=== PATIENT | male | born 1995 | race Caucasian/White ===

== ENCOUNTER 2024-06-29 07:59 | Inpatient (IN) | payer OTHER ==
[~2024-06-29] VITALS: Ht 185.4 cm; Wt 65.4 kg
[2024-06-29] MEDS: PIPERACILLIN/TAZO 3.375G/50ML 50 ML IV ONE (08:56)
[2024-06-29] MEDS: SODIUM CHLORIDE 0.9% 1000ML BAG (SEPSIS BOLUS) IV ONE (08:56)
[2024-06-29 09:02] LABS: HEMATOCRIT. 46.7 % (42.0-52.0); HEMOGLOBIN. 15.4 g/dL (14.0-18.0); MEAN CORPUSCULAR HEMOGLOBIN 30.1 pg (28.0-32.0); MEAN CORPUSCULAR VOLUME 91.1 fL (80.0-94.0); MEAN PLATELET VOLUME 7.3 fl (7.4-10.4); PLATELET 300 x1000/uL (130-400); RED BLOOD CELL COUNT 5.13 mill/uL (4.7-6.1); RED CELL DISTRIBUTION WIDTH 14.1 % (11.6-14.6); WHITE BLOOD COUNT 16.4 x1000/uL (4.5-11.0)
[2024-06-29 09:05] LABS: DIFFERENTIAL COMMENT 1
[2024-06-29] MEDS: VANCOMYCIN 1G PREMIX 200 ML IV ONE (09:07)
[2024-06-29 09:10] LABS: CHLORIDE 93 mEq/L (98-107); POTASSIUM 4.3 mEq/L (3.5-5.1); SODIUM 127 mEq/L (136-145)
[2024-06-29 09:11] LABS: CALCIUM 9.6 mg/dL (8.7-10.4); CARBON DIOXIDE 28 mEq/L (21-32); INR 1.1; PROTHROMBIN TIME 11.7 sec (9.6-11.0)
[2024-06-29 09:16] LABS: GLUCOSE 118 mg/dL (70-105); UREA NITROGEN BLOOD 8 mg/dL (9-23)
[2024-06-29 09:17] LABS: TROPONIN I HIGH SENSITIVITY 13 ng/L (3.0-53)
[2024-06-29] MEDS: KETOROLAC 30MG/ML VIAL IV ONE (10:49)
[2024-06-29 11:17] LABS: PLATELET ESTIMATE NORMAL
[2024-06-29 11:27] LABS: CLARITY URINE CLEAR (CLEAR); COLOR URINE YELLOW (YELLOW); GLUCOSE URINE NEGATIVE (NEGATIVE); KETONES URINE NEGATIVE (NEGATIVE); LEUKOCYTE ESTERASE URINE NEGATIVE (NEGATIVE); NITRITE URINE NEGATIVE (NEGATIVE); OCCULT BLOOD URINE NEGATIVE (NEGATIVE); PROTEIN URINE 1+ (NEGATIVE); SPECIFIC GRAVITY URINE 1.012 (1.005-1.030)
[2024-06-29 11:55] LABS: SQUAMOUS EPITHELIAL CELL URINE NONE SEEN /lpf (RARE/1+)
[2024-06-29 11:56] LABS: BACTERIA URINE TRACE; RBC URINE NONE SEEN /hpf (0-2); WBC URINE 0-2 /hpf (0-2)
[2024-06-29] MEDS ORDERED: DOCUSATE SODIUM 100MG CAPSULE PO PRN (17:00)
[2024-06-29] MEDS ORDERED: ONDANSETRON HCL 4MG/2ML INJ IV PRN (17:00)
[2024-06-29] MEDS ORDERED: IPRATROPIUM/ALBUTEROL 0.5-3(2.5)MG/3ML NEB HHN PRN (17:00)
[2024-06-29] MEDS ORDERED: ACETAMINOPHEN 325MG TABLET PO PRN (17:00)
[2024-06-29] MEDS ORDERED: CLONIDINE 0.1MG TABLET PO PRN (17:00)
[2024-06-29] MEDS: METHYLPREDNISOLONE SOD SUCC 40MG/ML (ACT-O-VIAL) IV NR (17:24)
[2024-06-29] MEDS: SODIUM CHLORIDE 0.9% 1,000 ML IV SCH (17:24)
[2024-06-29 17:54] LABS: BG BASE EXCESS 1.4 mmol/L (-2.0-3.0); BG CARBOXYHEMOGLOBIN 0.8 % (0.5-1.5); BG DEOXYHEMOGLOBIN 7.9 % (0.0-5.0); BG FRACTION INSPIRED OXYGEN 21; BG HCO3 ACT 25.2 mmol/L (21.0-28.0); BG METHEMOGLOBIN 0.3 % (0.5-1.5); BG PCO2 37.5 mmHg (35.0-48.0); BG PH 7.446 (7.350-7.450); BG PO2 60.1 mmHg (83.0-108.0); BG SAMPLE SITE RIGHT BRACHIAL; BG VENT MODE ROOM AIR
[2024-06-29 19:56] VITALS: BP 133/76; PULSE 119; RESP 17; TEMP 37.66968; TEMP 37.6968; O2SAT 100
[2024-06-29] MEDS: PIPERACILLIN/TAZO 3.375G/50ML 50 ML IV SCH (21:18)
[2024-06-29] MEDS: DILTIAZEM HCL 30MG TABLET PO SCH (21:18)
[2024-06-29] MEDS: ACETAMINOPHEN 325MG TABLET PO PRN (21:19)
[2024-06-29] MEDS: TETANUS, DIPHTHERIA, PERTUSSIS VAC/PF 0.5ML (>10YR OLD) IM ONE (23:00)
[2024-06-29] MEDS: VANCOMYCIN 1G PREMIX 200 ML IV NR (23:02)
[2024-06-30] VITALS: BP 111/68; PULSE 68; RESP 19; TEMP 36.78072; O2SAT 97
[2024-06-30 00:44] LABS: CREATINE KINASE MB FRACTION 1.5 ng/mL (0.5-3.6)
[2024-06-30 02:04] LABS: *AMPHETAMINES SCREEN URINE PRESUMPTIVE POSITIVE (NEGATIVE); *BARBITURATES SCREEN URINE NEGATIVE (NEGATIVE); *BENZODIAZEPINES SCREEN URINE NEGATIVE (NEGATIVE); *COCAINE SCREEN URINE NEGATIVE (NEGATIVE); METHADONE URINE SCREEN NEGATIVE (NEGATIVE); OPIATES URINE SCREEN NEGATIVE (NEGATIVE)
[2024-06-30 02:05] LABS: CANNABINOID URINE SCREEN PRESUMPTIVE POSITIVE (NEGATIVE); ECSTASY MDMA SCREEN URINE NEGATIVE (NEGATIVE); PHENCYCLIDINE URINE SCREEN NEGATIVE (NEGATIVE)
[2024-06-30 04:00] VITALS: BP 112/62; PULSE 65; RESP 15; TEMP 37.00296; O2SAT 97
[2024-06-30] MEDS: VANCOMYCIN 750MG PREMIX 150 ML IV SCH (05:04)
[2024-06-30 07:41] LABS: CREATINE KINASE MB FRACTION 1.2 ng/mL (0.5-3.6)
[2024-06-30 08:00] VITALS: BP 117/72; PULSE 72; RESP 14; TEMP 36.89184; O2SAT 98
[2024-06-30] MEDS ORDERED: IPRATROPIUM/ALBUTEROL 0.5-3(2.5)MG/3ML NEB HHN PRN (11:15)
[2024-06-30 12:00] VITALS: BP 115/78; PULSE 70; RESP 22; TEMP 36.83628; O2SAT 98
[2024-06-30 13:17] LABS: HEMATOCRIT. 42.3 % (42.0-52.0); HEMOGLOBIN. 13.9 g/dL (14.0-18.0); MEAN CORPUSCULAR HEMOGLOBIN 30.4 pg (28.0-32.0); MEAN CORPUSCULAR HGB CONC 32.9 g/dL (31.0-37.0); MEAN CORPUSCULAR VOLUME 92.3 fL (80.0-94.0); MEAN PLATELET VOLUME 7.7 fl (7.4-10.4); PLATELET 298 x1000/uL (130-400); RED BLOOD CELL COUNT 4.58 mill/uL (4.7-6.1); RED CELL DISTRIBUTION WIDTH 14.5 % (11.6-14.6); WHITE BLOOD COUNT 16.2 x1000/uL (4.5-11.0)
[2024-06-30 13:18] LABS: DIFFERENTIAL COMMENT 1
[2024-06-30 13:27] LABS: CHLORIDE 105 mEq/L (98-107); POTASSIUM 4.3 mEq/L (3.5-5.1); SODIUM 138 mEq/L (136-145)
[2024-06-30 13:28] LABS: CARBON DIOXIDE 27 mEq/L (21-32)
[2024-06-30 13:33] LABS: CREATININE 0.6 mg/dL (0.6-1.3); GLUCOSE 116 mg/dL (70-105)
[2024-06-30 13:34] LABS: LDL CHOLESTEROL 70 mg/dL (5-100); TRIGLYCERIDE 85 mg/dL (0-150); UREA NITROGEN BLOOD 12 mg/dL (9-23)
[2024-06-30 13:35] LABS: ALANINE AMINOTRANSFERASE 39 IU/L (10-49); ALBUMIN 3.8 g/dL (3.2-4.8); ASPARTATE AMINOTRANSFERASE 34 IU/L (<34); BILIRUBIN DIRECT 0.1 mg/dL (<=3.0); CHOLESTEROL 111 mg/dL (<200); HDL CHOLESTEROL 29 mg/dL (>55); PHOSPHORUS 2.6 mg/dL (2.5-4.9)
[2024-06-30 13:36] LABS: BILIRUBIN TOTAL 0.4 mg/dL (0.1-1.0); PROTEIN TOTAL 6.7 g/dL (6.0-8.3)
[2024-06-30 13:38] LABS: PROTHROMBIN TIME 11.1 sec (9.6-11.0); T4 FREE 0.88 ng/dL (0.89-1.76); THYROID STIMULATING HORMONE 1.67 uIU/mL (0.55-4.78)
[2024-06-30] MEDS: TETANUS, DIPHTHERIA, PERTUSSIS VAC/PF 0.5ML (>10YR OLD) IM ONE (14:01)
[2024-06-30 15:49] LABS: PLATELET ESTIMATE NORMAL
[2024-06-30 16:00] VITALS: BP 114/75; PULSE 78; RESP 14; TEMP 36.89184; O2SAT 98
[2024-06-30 16:17] LABS: CREATINE KINASE MB FRACTION 1.1 ng/mL (0.5-3.6)
[2024-06-30 20:00] VITALS: BP 122/77; PULSE 99; RESP 25; TEMP 37.00296; O2SAT 98
[2024-06-30] MEDS: MUPIROCIN 2% OINT 22GM TOP SCH (21:27)
[2024-06-30] MEDS: HYDROCODONE/ACETAMINOPHEN 5/325MG TABLET PO PRN (21:54)
[2024-07-01] VITALS: BP 116/75; PULSE 68; RESP 12; TEMP 37.05852; O2SAT 98
[2024-07-01 01:30] LABS: CREATINE KINASE MB FRACTION 0.9 ng/mL (0.5-3.6)
[2024-07-01 04:13] VITALS: BP 112/67; PULSE 72; RESP 13; TEMP 36.9474; O2SAT 96
[2024-07-01 04:33] LABS: BASOPHILS % 0.1 % (0.0-2.0); EOSINOPHILS % 0.3 % (0.0-5.0); HEMATOCRIT. 39.3 % (42.0-52.0); LYMPHOCYTES % 11.6 % (20.0-50.0); MEAN CORPUSCULAR HEMOGLOBIN 30.2 pg (28.0-32.0); MEAN CORPUSCULAR VOLUME 91.7 fL (80.0-94.0); MEAN PLATELET VOLUME 7.7 fl (7.4-10.4); MONOCYTES % 8.9 % (2.0-8.0); NEUTROPHILS % 79.1 % (40.0-76.0); PLATELET 294 x1000/uL (130-400); RED BLOOD CELL COUNT 4.29 mill/uL (4.7-6.1); RED CELL DISTRIBUTION WIDTH 14.7 % (11.6-14.6); WHITE BLOOD COUNT 12.4 x1000/uL (4.5-11.0)
[2024-07-01 04:43] LABS: CARBON DIOXIDE 29 mEq/L (21-32); CHLORIDE 106 mEq/L (98-107); POTASSIUM 3.9 mEq/L (3.5-5.1); SODIUM 140 mEq/L (136-145)
[2024-07-01 04:49] LABS: CREATININE 0.7 mg/dL (0.6-1.3); GLUCOSE 113 mg/dL (70-105); UREA NITROGEN BLOOD 15 mg/dL (9-23)
[2024-07-01 04:51] LABS: PHOSPHORUS 2.4 mg/dL (2.5-4.9)
[2024-07-01] MEDS ORDERED: IOHEXOL-350 100 ML BOTTLE ONE (07:11)
[2024-07-01 08:00] VITALS: BP 111/67; PULSE 96; RESP 22; TEMP 36.78072; O2SAT 100
[2024-07-01] MEDS: MORPHINE SULFATE 2 MG/ML INJ (NOT FOR IM USE) IV NR (10:50)
[2024-07-01 12:01] VITALS: BP 114/79; PULSE 92; RESP 23; TEMP 36.89184; O2SAT 100
[2024-07-01] MEDS: MAGNESIUM 2 G PREMIX 50 ML IV NR (13:04)
[2024-07-01] MEDS: VANCOMYCIN 1.25GM PMX (XELLIA) 250 ML IV SCH (14:38)
[2024-07-01] MEDS ORDERED: NALOXONE HCL 0.4MG/ML VIAL IV PRN (15:15)
[2024-07-01 16:00] VITALS: BP 118/80; PULSE 97; RESP 14; TEMP 36.78072; O2SAT 100
[2024-07-01 20:00] VITALS: BP 118/74; PULSE 94; RESP 27; TEMP 36.72516; O2SAT 99
[2024-07-02] VITALS: BP 115/77; PULSE 63; RESP 12; TEMP 36.83628; O2SAT 97
[2024-07-02 01:12] VITALS: BP 115/77; PULSE 63; TEMP 98.3; O2SAT 100
== END 2024-07-02 01:45 | disposition short-term general hospital (02) | DRG 816 ==
LOC: ER 07:59 → 5WST 12:08 → EDBEDREQTM 12:26 → EDBEDREQ 12:26 → 3WST 19:50
PROVIDERS: ADMIT Internal Medicine; ATTEND Internal Medicine
DX: T63.301A Toxic effect of unspecified spider venom, accidental (unintentional), initial encounter (principal); A41.01 Sepsis due to Methicillin susceptible Staphylococcus aureus; E87.1 Hypo-osmolality and hyponatremia; F19.10 Other psychoactive substance abuse, uncomplicated; L02.31 Cutaneous abscess of buttock; L03.317 Cellulitis of buttock; Y92.89 Other specified places as the place of occurrence of the external cause; Z20.822 Contact with and (suspected) exposure to COVID-19
CPT/HCPCS: 36415; 36600; 71045; 71275; 80048; 80061; 80076; 80202; 80305; 81003; 82375; 82550; 82553; 82805; 83605; 83735; 83880; 84100; 84145; 84439; 84443; 84480; 84484; 85025; 85379; 87070; 87077; 87186; 87426; 90715; 93005; 93306; 93970; 99291; C1893; J1885; J2270; J2543; J2920; J3370; J3475; J7030; Q9967